=== PATIENT | female | born 1965 | race Caucasian/White ===

== ENCOUNTER → 2018-02-13 | Outpatient (REF) | payer OTHER ==
[2018-02-13 12:33] LABS: BASO % 0.4 % (0.0-1.0); EOS # 0.1 10^3/uL (0.0-0.50); HEMATOCRIT 38.8 % (36.0-47.0); HEMOGLOBIN 12.8 g/dl (12.0-15.5); IMMATURE GRANULOCYTE % 0.6 % (0-3.0); LYMPH # 1.6 10^3/uL (1.5-4.5); LYMPH % 23.4 % (24.0-44.0); MEAN CORPUSCULAR VOLUME 93.9 fl (80.0-96.0); MONO # 0.4 10^3/uL (0.0-0.8); MONO % 5.2 % (0.0-5.0); NEUTROPHILS # 4.7 10^3/uL (1.8-7.7); NEUTROPHILS % 69.4 % (36.0-66.0); PLATELET COUNT, AUTOMATED 215 10^3/uL (150-450); RED BLOOD COUNT 4.13 10^6/uL (4.00-5.40); RED CELL DISTRIBUTION WIDTH 12.3 % (11.5-14.5); WHITE BLOOD COUNT 6.7 10^3/uL (4.0-10.0)
[2018-02-13 12:48] LABS: ALBUMIN 3.5 GM/DL (3.2-5.2); ALBUMIN/GLOBULIN RATIO 1.13 (1.00-1.93); ALKALINE PHOSPHATASE 50 U/L (45-117); ALT/SGPT 22 U/L (12-78); ANION GAP 5 MEQ/L (8-16); AST/SGOT 15 U/L (7-37); BILIRUBIN,TOTAL 0.3 MG/DL (0.2-1.0); BLOOD UREA NITROGEN 18 MG/DL (7-18); CARBON DIOXIDE LEVEL 28 MEQ/L (21-32); CHLORIDE LEVEL 109 MEQ/L (98-107); CHOLESTEROL LEVEL 192 MG/DL (<200); CREATININE FOR GFR 0.75 MG/DL (0.55-1.30); GLOMERULAR FILTRATION RATE > 60.0 (>51); GLUCOSE, FASTING 84 MG/DL (70-100); HDL CHOLESTEROL 75 MG/DL (>40); LDL CHOLESTEROL 100 MG/DL (<100); MAGNESIUM LEVEL 2.1 MG/DL (1.8-2.4); NON-HDL-C 117 MG/DL; POTASSIUM SERUM 4.3 MEQ/L (3.5-5.1); SODIUM LEVEL 142 MEQ/L (136-145); TOTAL PROTEIN 6.6 GM/DL (6.4-8.2); TRIGLYCERIDES LEVEL 85 MG/DL (<150)
== END ==
LOC: M SFHCCLAY 08:09
DX: I10 Essential (primary) hypertension (principal); R63.5 Abnormal weight gain

== ENCOUNTER 2018-06-09 06:34 | Day surgery (SDC) | payer BC, OTHER ==
[~2018-06-09] VITALS: Ht 160 cm; Wt 65.3 kg
[~2018-06-09 06:34] MED LIST: LARI1TAB3 PO; LISI10TA4 PO
[2018-06-09] MEDS ORDERED: NS 1,000 ML IV SCH (07:15)
[2018-06-09] MEDS ORDERED: PROPOFOL 200 MG/20 ML VIAL As Ordered ONE (07:38)
[2018-06-09] MEDS ORDERED: LIDOCAINE 2% INJ 100 MG/5 ML SDV (FOR ANES.) As Ordered ONE (07:38)
--- NOTE | 2018-06-09 07:52 | ROOR ---
Patient Name: Judy Lagos Procedure Date: 06/09/2018 7:28 AM Date of : 1965 Age: 52 Room: [facility] Gender: Female Note Status: Finalized Procedure: Colonoscopy Indications: Positive Cologuard test Providers: Thang WALLIS MD Referring MD: ABRIL CASTILLO DO Requesting Provider: Medicines: Monitored Anesthesia Care Complications: No immediate complications. Procedure: Pre-Anesthesia Assessment: - The heart rate, respiratory rate, oxygen saturations, blood pressure, adequacy of pulmonary ventilation, and response to care were monitored throughout the procedure. The Colonoscope was introduced through the anus and advanced to the cecum, identified by appendiceal orifice and ileocecal valve. The colonoscopy was performed without difficulty. Findings: The perianal and digital rectal examinations were normal. Small Internal Hemorrhoids. The entire examined colon appeared normal on direct and retroflexion views. Retroflexion in the right colon was performed. Impression: - Small Internal Hemorrhoids. - The entire examined colon is normal on direct and retroflexion views. - No specimens collected. Recommendation: - Repeat colonoscopy in 10 years for screening purposes. Thang Wallis MD Thnag WALLIS MD 06/09/2018 7:52:03 AM This report has been signed electronically. Number of Addenda: 0 Note Initiated On: 06/09/2018 7:28 AM Estimated Blood Loss: Estimated blood loss: none.
[2018-06-09 08:15] VITALS: BP 119/72
== END 2018-06-09 08:17 | disposition home or self-care (01) ==
LOC: M OPP 06:34
PROVIDERS: ATTEND Internal Medicine Gastroenterology
DX: R19.5 Other fecal abnormalities (principal); K64.8 Other hemorrhoids; I10 Essential (primary) hypertension; Z79.899 Other long term (current) drug therapy

== ENCOUNTER → 2018-12-19 | Outpatient (CLI) | payer BC ==
--- NOTE | 2018-12-20 11:58 | REP ---
Clinical: Left foot pain. Technique: AP, lateral, bilateral oblique views of the left foot. Findings: Generalized age-related changes appreciated. No overt arthritic findings. No acute fracture dislocation. No subcutaneous emphysema or radiodense foreign body. Impression: Generalized age-related changes. Electronically Signed by Patrick Morales MD 12/20/2018 02:58 A
== END ==
LOC: M CLY 07:50
PROVIDERS: ATTEND Family Medicine
DX: M79.672 Pain in left foot (principal)

== ENCOUNTER → 2019-02-15 | Outpatient (REF) | payer OTHER ==
[2019-02-15 11:49] LABS: BASO % 0.5 % (0.0-1.0); EOS # 0.1 10^3/uL (0.0-0.5); EOS % 0.9 % (0.0-3.0); HEMATOCRIT 39.1 % (36.0-47.0); HEMOGLOBIN 12.8 g/dl (12.0-15.5); LYMPH # 1.6 10^3/uL (1.5-5.0); LYMPH % 24.2 % (24.0-44.0); MEAN CORPUSCULAR HEMOGLOBIN 31.1 pg (27.0-33.0); MEAN CORPUSCULAR HGB CONC 32.7 g/dl (32.0-36.5); MEAN CORPUSCULAR VOLUME 94.9 fl (80.0-96.0); MONO # 0.5 10^3/uL (0.0-0.8); MONO % 7.3 % (0.0-5.0); NEUTROPHILS # 4.4 10^3/uL (1.5-8.5); NEUTROPHILS % 66.8 % (36.0-66.0); PLATELET COUNT, AUTOMATED 219 10^3/uL (150-450); RED BLOOD COUNT 4.12 10^6/uL (4.00-5.40); WHITE BLOOD COUNT 6.5 10^3/uL (4.0-10.0)
[2019-02-15 12:21] LABS: ALBUMIN 3.8 GM/DL (3.2-5.2); ALT/SGPT 38 U/L (12-78); BILIRUBIN,TOTAL 0.5 MG/DL (0.2-1.0); BLOOD UREA NITROGEN 14 MG/DL (7-18); CARBON DIOXIDE LEVEL 26 MEQ/L (21-32); CHLORIDE LEVEL 105 MEQ/L (98-107); CHOLESTEROL LEVEL 234 MG/DL (<200); CHOLESTEROL RISK RATIO 2.387 (<5); CREATININE FOR GFR 0.79 MG/DL (0.55-1.30); GLOMERULAR FILTRATION RATE > 60.0 (>51); GLUCOSE, FASTING 81 MG/DL (70-100); HDL CHOLESTEROL 98 MG/DL (>40); LDL CHOLESTEROL 126 MG/DL (<100); NON-HDL-C 136 MG/DL; POTASSIUM SERUM 4.7 MEQ/L (3.5-5.1); SODIUM LEVEL 138 MEQ/L (136-145); TOTAL PROTEIN 6.9 GM/DL (6.4-8.2); TRIGLYCERIDES LEVEL 52 MG/DL (<150)
== END ==
LOC: M SFHCCLAY 07:51
PROVIDERS: ATTEND Family Medicine
DX: Z00.00 Encounter for general adult medical examination without abnormal findings (principal); I10 Essential (primary) hypertension

== ENCOUNTER → 2020-05-29 | Outpatient (CLI) | payer BC ==
[~2020-05-29] MED LIST changes: +LISI10TA22 PO; -LISI10TA4 PO
--- NOTE | 2020-05-30 03:26 | REP ---
INDICATION: M75.41,IMPINGEMENT SYNDROME OF R SHOULDER COMPARISON: None. TECHNIQUE: Internal rotation, external rotation, and Y view. FINDINGS: Very minimal cortical irregularity at the distal acromion. Distal aspect of the clavicle appears normal. Acromioclavicular joint is stable in appearance. Glenohumeral joint appears intact and normal. No evidence for acute fracture or dislocation. Subacromial space is normal. Surrounding soft tissues are unremarkable. IMPRESSION: Relatively normal age-appropriate right shoulder radiographs. <Electronically signed by Patrick Morales > 05/30/20 [id number]
== END ==
LOC: M CLY 13:01
PROVIDERS: ATTEND Family Medicine
DX: M75.41 Impingement syndrome of right shoulder (principal); M25.511 Pain in right shoulder

== ENCOUNTER → 2020-06-10 | Outpatient (CLI) | payer BC, OTHER ==
--- NOTE | 2020-06-10 10:33 | REP ---
INDICATION: RT SHOULDER IMPINMENT SYNDROME. COMPARISON: Comparison shoulder radiographs are from May 29, 2020.. TECHNIQUE: Axial, oblique coronal and oblique sagittal imaging planes utilized. T1 and T2 weighted scans are obtained in the usual fashion. FINDINGS: Subcortical cyst formation is seen in the superolateral humeral head. This finding may correspond with impingement. Cortical and medullary bone signal intensity are otherwise normal. There is a small sliver of subacromial subdeltoid bursal fluid. There is also minimal glenohumeral joint fluid. Alignment is normal. There is soft tissue edema along the axillary recess. This combined with the joint fluid suggests in of itis. No articular cartilage defect is seen. No labral cartilage tear is appreciated. There is mild tendinitis tendinosis change in the distal supraspinatus tendon. No cuff tear is appreciated. The subscapularis and infraspinatus tendons appear intact. No juxta-articular mass or cyst is observed. Biceps tendon is unremarkable. IMPRESSION: Tendinitis tendinosis change in the distal supraspinatus tendon. No focal or full-thickness cuff tear is seen. There is a small right glenohumeral joint effusion and small subacromial subdeltoid bursal effusion. Question mild synovitis. Otherwise negative. <Electronically signed by Jasper Rosado > 06/10/20 [id number]
== END ==
LOC: M RAD 06:54
PROVIDERS: ATTEND Family Medicine
DX: M75.41 Impingement syndrome of right shoulder (principal)

== ENCOUNTER → 2020-07-29 | Outpatient (REF) | payer OTHER | LOC: M SFHCCLAY 15:16 | PROVIDERS: ATTEND Family Medicine | DX: Z53.21 Procedure and treatment not carried out due to patient leaving prior to being seen by health care provider (principal) ==

== ENCOUNTER → 2020-07-30 | Outpatient (REF) | payer OTHER ==
[2020-07-30 11:34] LABS: BASO % 0.3 % (0.0-1.0); EOS # 0.1 10^3/uL (0.0-0.5); EOS % 1.4 % (0.0-3.0); HEMATOCRIT 39.5 % (36.0-47.0); HEMOGLOBIN 13.3 g/dl (12.0-15.5); LYMPH # 1.6 10^3/uL (1.5-5.0); LYMPH % 27.5 % (24.0-44.0); MEAN CORPUSCULAR HEMOGLOBIN 30.8 pg (27.0-33.0); MEAN CORPUSCULAR HGB CONC 33.7 g/dl (32.0-36.5); MEAN CORPUSCULAR VOLUME 91.4 fl (80.0-96.0); MONO # 0.4 10^3/uL (0.0-0.8); MONO % 6.7 % (2.0-8.0); NEUTROPHILS # 3.7 10^3/uL (1.5-8.5); NEUTROPHILS % 63.8 % (36.0-66.0); PLATELET COUNT, AUTOMATED 240 10^3/uL (150-450); RED BLOOD COUNT 4.32 10^6/uL (4.00-5.40); WHITE BLOOD COUNT 5.9 10^3/uL (4.0-10.0)
[2020-07-30 12:14] LABS: ERYTHROCYTE SEDIMENTATION RATE 11 mm/hr (0-30)
[2020-07-30 12:28] LABS: ALBUMIN 4.3 GM/DL (3.2-5.2); ALT/SGPT 29 U/L (12-78); BILIRUBIN,TOTAL 0.4 MG/DL (0.2-1.0); BLOOD UREA NITROGEN 17 MG/DL (7-18); CALCIUM LEVEL 9.7 MG/DL (8.5-10.1); CARBON DIOXIDE LEVEL 28 MEQ/L (21-32); CHLORIDE LEVEL 107 MEQ/L (98-107); CHOLESTEROL LEVEL 257 MG/DL (<200); CHOLESTEROL RISK RATIO 2.379 (<5); CREATININE FOR GFR 0.75 MG/DL (0.55-1.30); GLOMERULAR FILTRATION RATE > 60.0 (>51); GLUCOSE, FASTING 103 MG/DL (70-100); HDL CHOLESTEROL 108 MG/DL (>40); LDL CHOLESTEROL 138 MG/DL (<100); NON-HDL-C 149 MG/DL; POTASSIUM SERUM 4.9 MEQ/L (3.5-5.1); SODIUM LEVEL 139 MEQ/L (136-145); THYROXINE (T4) 8.9 UG/DL (4.5-12.0); TOTAL PROTEIN 7.2 GM/DL (6.4-8.2); TOTAL T3 102.5 NG/DL (60.0-181.0); TRIGLYCERIDES LEVEL 56 MG/DL (<150)
[2020-08-02 06:07] LABS: ANA (HEP2) Negative (.); CERULOPLASMIN 24.4 mg/dL (19.0-39.0); COPPER PLASMA 107 ug/dL (80-158); CYCLIC CITRULLINATED PEPTIDE < 1 units (0-19); Lyme Disease IgG/IgM Antibodie <0.91 ISR (0.00-0.90); Lyme Disease IgM Ab Quantitati <0.80 index (0.00-0.79)
== END ==
LOC: M SFHCCLAY 07:59
PROVIDERS: ATTEND Family Medicine
DX: R25.1 Tremor, unspecified (principal); I10 Essential (primary) hypertension; M25.511 Pain in right shoulder

== ENCOUNTER → 2022-03-26 | Outpatient (REF) | payer OTHER ==
[2022-03-26 12:37] LABS: BASO % 0.3 % (0.0-1.0); EOS # 0.1 10^3/uL (0.0-0.5); EOS % 1.4 % (0.0-3.0); HEMATOCRIT 37.5 % (36.0-47.0); HEMOGLOBIN 12.2 g/dl (12.0-15.5); LYMPH # 2.1 10^3/uL (1.5-5.0); LYMPH % 36.3 % (24.0-44.0); MEAN CORPUSCULAR HGB CONC 32.5 g/dl (32.0-36.5); MEAN CORPUSCULAR VOLUME 92.4 fl (80.0-96.0); MONO # 0.4 10^3/uL (0.0-0.8); MONO % 7.4 % (2.0-8.0); NEUTROPHILS # 3.2 10^3/uL (1.5-8.5); NEUTROPHILS % 54.4 % (36.0-66.0); PLATELET COUNT, AUTOMATED 239 10^3/uL (150-450); RED BLOOD COUNT 4.06 10^6/uL (4.00-5.40); WHITE BLOOD COUNT 5.8 10^3/uL (4.0-10.0)
[2022-03-26 14:03] LABS: ALKALINE PHOSPHATASE 66 U/L (46-116); ALT/SGPT 20 U/L (7.0-40); AST/SGOT 21 U/L (<34); BILIRUBIN,TOTAL 0.5 MG/DL (0.3-1.2); BLOOD UREA NITROGEN 16 MG/DL (9-23); CALCIUM LEVEL 9.5 MG/DL (8.5-10.1); CARBON DIOXIDE LEVEL 29 MMOL/L (20-31); CHLORIDE LEVEL 106 MMOL/L (98-107); CHOLESTEROL LEVEL 219 MG/DL (<200); CHOLESTEROL RISK RATIO 2.97 (<5); GLOMERULAR FILTRATION RATE > 60.0 (>51); GLUCOSE, FASTING 95 MG/DL (60-100); HDL CHOLESTEROL 73.7 MG/DL (>40); LDL CHOLESTEROL 137.7 MG/DL (<100); NON-HDL-C 145 MG/DL; POTASSIUM SERUM 4.8 MMOL/L (3.5-5.1); SODIUM LEVEL 141 MMOL/L (136-145); TRIGLYCERIDES LEVEL 38 MG/DL (<150)
== END ==
LOC: M SFHCCLAY 07:38
PROVIDERS: ATTEND Family Medicine
DX: I10 Essential (primary) hypertension (principal)

== ENCOUNTER → 2023-03-21 | Outpatient (REF) | payer OTHER ==
[2023-03-21 12:02] LABS: HEMATOCRIT 39.5 % (36.0-47.0); HEMOGLOBIN 13.1 g/dl (12.0-15.5); MEAN CORPUSCULAR HEMOGLOBIN 30.3 pg (27.0-33.0); MEAN CORPUSCULAR HGB CONC 33.2 g/dl (32.0-36.5); MEAN CORPUSCULAR VOLUME 91.2 fl (80.0-96.0); PLATELET COUNT, AUTOMATED 233 10^3/uL (150-450); RED BLOOD COUNT 4.33 10^6/uL (4.00-5.40); WHITE BLOOD COUNT 6.2 10^3/uL (4.0-10.0)
[2023-03-21 12:38] LABS: ALBUMIN 3.8 G/DL (3.2-5.2); ALKALINE PHOSPHATASE 70 U/L (46-116); ALT/SGPT 25 U/L (7.0-40); AST/SGOT 20 U/L (<34); BILIRUBIN,TOTAL 0.4 MG/DL (0.3-1.2); BLOOD UREA NITROGEN 14 MG/DL (9-23); CALCIUM LEVEL 9.1 MG/DL (8.5-10.1); CARBON DIOXIDE LEVEL 28 MMOL/L (20-31); CHLORIDE LEVEL 106 MMOL/L (98-107); CHOLESTEROL LEVEL 242 MG/DL (<200); CHOLESTEROL RISK RATIO 3.31 (<5); CREATININE FOR GFR 0.64 MG/DL (0.55-1.30); GLOMERULAR FILTRATION RATE > 60.0 (>51); GLUCOSE, FASTING 98 MG/DL (60-100); HDL CHOLESTEROL 72.9 MG/DL (>40); LDL CHOLESTEROL 144.7 MG/DL (<100); NON-HDL-C 169.1 MG/DL; POTASSIUM SERUM 4.5 MMOL/L (3.5-5.1); SODIUM LEVEL 143 MMOL/L (136-145); TOTAL PROTEIN 6.8 G/DL (5.7-8.2); TRIGLYCERIDES LEVEL 122 MG/DL (<150)
== END ==
LOC: M SFHCCLAY 07:43
PROVIDERS: ATTEND Family Medicine
DX: I10 Essential (primary) hypertension (principal); E78.2 Mixed hyperlipidemia

== ENCOUNTER → 2024-03-21 | Outpatient (REF) | payer BC ==
[2024-03-21 11:51] LABS: ALKALINE PHOSPHATASE 62 U/L (35-104); ALT/SGPT 19 U/L (7.0-40); AST/SGOT 12 U/L (<34); BILIRUBIN,TOTAL 0.5 MG/DL (0.3-1.2); BLOOD UREA NITROGEN 24 MG/DL (9-23); CARBON DIOXIDE LEVEL 29 MMOL/L (20-31); CHLORIDE LEVEL 108 MMOL/L (98-107); CHOLESTEROL LEVEL 273 MG/DL (<200); CHOLESTEROL RISK RATIO 3.69 (<5); CREATININE FOR GFR 0.79 MG/DL (0.55-1.30); GLOMERULAR FILTRATION RATE > 60.0 (>51); GLUCOSE, FASTING 99 MG/DL (60-100); HDL CHOLESTEROL 73.9 MG/DL (>40); LDL CHOLESTEROL 187.5 MG/DL (<100); NON-HDL-C 199.1 MG/DL; SODIUM LEVEL 139 MMOL/L (136-145); TOTAL PROTEIN 7.2 G/DL (5.7-8.2); TRIGLYCERIDES LEVEL 58 MG/DL (<150)
== END ==
LOC: M SFHCCLAY 07:10
PROVIDERS: ATTEND Family Medicine
DX: I10 Essential (primary) hypertension (principal); E78.2 Mixed hyperlipidemia

== ENCOUNTER → 2024-04-23 | Outpatient (REF) | payer BC | LOC: M SFHCCLAY 04-19 08:39 | PROVIDERS: ATTEND Family Medicine | DX: L72.0 Epidermal cyst (principal) ==

== ENCOUNTER → 2025-03-26 | Outpatient (REF) | payer BC ==
[2025-03-26 12:36] LABS: PLATELET COUNT, AUTOMATED 203 10^3/uL (150-450)
[2025-03-26 13:05] LABS: ALT/SGPT 27 U/L (7.0-40); AST/SGOT 26 U/L (<34); CALCIUM LEVEL 9.8 MG/DL (8.5-10.1); CARBON DIOXIDE LEVEL 27 MMOL/L (20-31); CHLORIDE LEVEL 104 MMOL/L (98-107); CHOLESTEROL LEVEL 263 MG/DL (<200); CHOLESTEROL RISK RATIO 3.33 (<5); CREATININE FOR GFR 0.69 MG/DL (0.55-1.30); GLOMERULAR FILTRATION RATE > 90.0 (>51); LDL CHOLESTEROL 168.8 MG/DL (<100); NON-HDL-C 184.2 MG/DL; POTASSIUM SERUM 4.4 MMOL/L (3.5-5.1); SODIUM LEVEL 141 MMOL/L (136-145); TRIGLYCERIDES LEVEL 77 MG/DL (<150)
== END ==
LOC: M SFHCCLAY 07:29
PROVIDERS: ATTEND Family Medicine
DX: I10 Essential (primary) hypertension (principal); E78.2 Mixed hyperlipidemia; R25.1 Tremor, unspecified